=== PATIENT | male | born 1980 | race Caucasian/White ===

== ENCOUNTER → 2021-06-05 11:30 | Outpatient (CLI) | payer OTHER, SELFPAY ==
--- NOTE | ~2021-06-05 | US_ITS ---
EXAMINATION: US renal BI DATE: 06/05/2021 11:43 INDICATION: Persistent proteinuria TECHNIQUE: Multiple ultrasound grayscale images of the kidneys were obtained. COMPARISON: None. FINDINGS: The right kidney measures 11.6 x 8.7 x 6.7 cm. The left kidney measures 13.2 x 6.7 x 6.1 cm. The kidn eys demonstrate normal echogenicity. There is no hydronephrosis in either kidney. No stones identifi ed. The bladder is normal. IMPRESSION: 1. Normal kidneys without hydronephrosis. Reviewed, dictated and finalized at location B.
== END ==
PROVIDERS: PCP Family Medicine; Visit Provider Internal Medicine Nephrology
DX: R80.1 Persistent proteinuria, unspecified (principal)
CPT/HCPCS: 76775

== ENCOUNTER 2024-07-26 11:50 | Outpatient (CLI) | payer OTHER, SELFPAY ==
--- NOTE | ~2024-07-26 | XR_ITS ---
Left foot Technique: AP, oblique, and lateral views were obtained. Clinical History: Swelling Findings: No acute fracture or dislocation is seen. Osseous alignment is anatomic. Joint spaces are p reserved without erosive or degenerative change. Soft tissues are unremarkable. Impression: Unremarkable left foot radiographs. Reviewed, dictated and finalized at location . Impression: Unremarkable left foot radiographs.
--- OUTSIDE RECORDS SUMMARY | 2024-07-26 13:34 | XMS_ITS | Encounter Summary ---
Author Organization [facility] Address [address] [place] [address] Care Team Providers Care Sealant Mixer Name Role Phone Carlos Delcid MD Primary Care Provider [phone] Encounter Details Date Type Department Care Team (Late st Contact Info) Description 12/12/2016 [place] [address] , Generic Conversion, Social History Tobacco Use Types Packs/Day Years Used Date Smoking Tobacco: Never Assessed Sex and Gender Information Value Date Recorded Sex Assigned at Not on file Legal Sex Male 8:13 PM CDT Gender Identity Not on file Sexual Orientation Not on file documented as of this encounter Plan of Treatment Not on file documented as of this encounter Visit Diagnoses Not on filedocumented in this encounter Care Teams Sealant Mixer Relationship Specialty Start Date End Date Carlos Delcid MD [address] [place] [address] PCP - General 09/03/14 documented as of this encounter
--- OUTSIDE RECORDS SUMMARY | 2024-07-26 13:35 | XMS_ITS | Data Portability ---
Author Organization [facility] [employer] [facility], Main Office Address [address] [place] [address] Care Team Providers Care Director Global Intelligence Name Role Phone GEN CALLAWAY Primary Care Provider GEN CALLAWAY Referring Provider [phone] Assessment Encounter Date Assessment Date Assessment LastModified by Organization Details LastModified Time 04/22/2023 04/22/2023 The patient has a mild to moderate left ankle sprain after a ski injury. The pain is localized laterally. It is getting better with time. His x-rays today appear unremarkable. We talked about working on gentle range of motion swelling control with ice compression elevation and anti-inflammator y medication. He can start to wean back into his normal activity slowly. I did offer him a lace-up ankle brace he declined he states he does not have enough discomfort to consider that. I will see him back as needed if symptoms persist or worsen he is instructed call he voiced understanding and agrees with above plan. [email or web address] Not available 04/22/2023 12:07:43 Plan of Treatment Reminders Order Date Submit Date Provider Last Modified By Organization Details Last Modified Time Details Appointments None recorded. Lab TSH + free T4, serum 2022 024 [email or web address] [facility], [address] [facility], [place], [address], 09:09:10 Referral None recorded. Procedures None recorded. Surgeries None recorded. Imaging XR, ankle 2023 024 [email or web address] [facility] [place], [address], [place], [address], 4 12:08:56 CT, abdomen + pelvis, w/ contrast - approved [id number] 01/12/23-02/08 023 [email or web address] Not available 3 12:38:59 Medication Orders atorvastati n 40 mg tablet 2022 023 [facility], [address], [place], [id number], 3 11:11:33 hydrochloro thiazide 25 mg tablet [email or web address] [place] [address] [facility], [address], [place], [id number], 4 11:17:39 lisinopril 40 mg tablet 2022 023 [facility]70350, [address] [place], [place], [id number], 3 11:11:29 levothyroxi ne 50 mcg tablet 2022 023 [facility]59505, [address], [place], [id number], 3 11:08:55 Patient TargetsNo targets recorded. Patient InstructionsNo instructions recorded. Reason for Referral None Reported. Results Created Date Observation Date Name Description Value Unit Range Abnormal Flag Note LastModifiedBy Organization Detail LastModifiedTime 06/28/19 22 06/27/2021 MR, angio gram, brain , w/wo contr ast No observ ation record ed. [id number] [facility] ([facility]) [address] [place], [address], 04/08/2022 12:46:51 01/09/20 22 01/07/2022 XR, foot No observ ation record ed. [id number] [facility] [address] [place], [address], 04/08/2022 12:46:51 01/26/20 23 01/25/2023 CT, abdom en + pelvi s, w/ contr ast No observ ation record ed. [email or web address] [facility] [address] [place], [address], 01/27/2023 15:44:39 04/22/19 24 XR, ankle No observ ation record ed. [email or web address] [facility] [place] [address], [place], [address], 04/22/2023 12:08:54 Result Notes None recorded. Problems Name Problem SNOMED Code Status Onset Date Resolution Date Notes Provider Name and Address Organization Details Recorded Time Injury of left foot 1808025667876 9108 Active 2021 Not Available [facility] 3 12:45:15 Benign essential hypertensi on 9966989 Active 2021 Not Available [facility] 3 12:45:15 Closed fracture proximal phalanx, toe 134011317 Active 2021 Not Available [facility] 3 12:45:15 Mixed hyperlipid emia 150793727 Active 2021 Not Available [facility] 3 12:45:15 Injury of toe 865995256 Active 2021 Not Available [facility] 3 12:45:15 Proteinuri a 85746498 Active 2021 Not Available [facility] 3 12:45:15 Arachnoid cyst 09503140 Active 2021 Not Available [facility] 3 12:45:16 Hypertensi ve disorder 71423114 Active 2021 Not Available [facility] 3 12:45:16 Hyperlipid emia 29196466 Active 2021 Not Available [facility] 3 12:45:16 Impaired glucose tolerance 7337586 Active 2021 Not Available [facility] 3 12:45:16 Hypothyroi dism 87907269 Active 2022 JULY Ambriz [address], [place], [address] , [facility] 3 11:07:55 Right lower quadrant pain 581450582 Active 2022 JULY Ambriz [address], [place], [address] , [facility] [employer] [facility] 3 12:41:25 Pain of left ankle joint 1289099546315 9103 Active 2023 Mira Anderson wanda, [facility] [employer] [facility] 4 11:18:46 Sprain of talofibula r ligament of left ankle 8193136162329 9103 Active 2023 JULY Garcia [address], [place], [address] , [facility] [employer] [facility] 4 12:09:21 Problem Notes None recorded. Procedures Surgical History Date Name Laterality Status Provider Name and Address Organization Details Recorded Time Orthopedic Surgery completed Not Available [facility] 04/08/2022 12:44:46 Imaging Results None recorded. Procedure Notes None recorded. Medical Equipment None Reported. Allergies No known drug allergies Medications Name Sig Start Date Stop Date Status Note LastModified by Organization Details LastModified Time atorvastati n 40 mg tablet TAKE 1 TABLET BY MOUTH EVERY NIGHT AT BEDTIME active Not Available Not Available No t Available atorvastati n 20 mg tablet TAKE 1 TABLET BY MOUTH DAILY 06/17 completed Not Available Not Available Not Available trazodone 50 mg tablet TAKE 1 TABLET BY MOUTH EVERY NIGHT AT BEDTIME NEEDED FOR INSOMNIA 06/18 completed Not Available Not Available Not Available atorvastati n 10 mg tablet 06/17 completed Not Available Not Available Not Available lisinopril 20 mg tablet TAKE 1 TABLET BY MOUTH DAILY 06/18 completed Not Available Not Available Not Available prednisone 20 mg tablet 03/20 completed Not Available Not Available Not Available chlorthalid one 25 mg tablet TAKE 1 TABLET BY MOUTH DAILY active Not Available Not Available No t Available alprazolam 0.5 mg tablet TAKE 1 TABLET BY MOUTH 1 HOUR PRIOR TO APPOINTME NT 06/18 completed Not Available Not Available Not Available levothyroxi ne 50 mcg tablet TAKE 1 TABLET BY MOUTH EVERY DAY IN THE MORNING active Not Available Not Available No t Available hydrochloro thiazide 25 mg tablet TAKE 1 TABLET BY MOUTH EVERY DAY 04/21 completed Not Available Not Available Not Available lisinopril 40 mg tablet TAKE 1 TABLET BY MOUTH EVERY DAY active Not Available Not Available No t Available Vitals Date Recorded Body height Body mass index (BMI) Body weight Provider Name and Address Organization Details Last Updated DateTime 04/22/2023 180.34 cm 33.5 kg/m2 325924.17 g Mira Justin [facility] 04/22/2023 11:17:05 Date Recorded Body mass index (BMI) Body height Oxygen saturation Oxygen saturation in Arterial blood by Pulse oximetry Heart rate Respiratory rate Body temperature Body weight Systolic blood pressure Diastolic blood pressure Provider Name and Address Organization Details Last Updated DateTime 2 18.9 kg/m2 182.88 cm 98 % 98 % 76 /min 16 /min 97.4 [degF] 58691.0 6 g 128 mm[Hg] 80 mm[Hg] Not Available [facility] 3 12:45:06 Date Recorded Body height Oxygen saturation Oxygen saturation in Arterial blood by Pulse oximetry Heart rate Respiratory rate Body temperature Systolic blood pressure Diastolic blood pressure Provider Name and Address Organization Details Last Updated DateTime 2 182.88 cm 98 % 98 % 72 /min 16 /min 97.6 [degF] 120 mm[Hg] 80 mm[Hg] Not Available [facility] 3 12:45:06 Date Recorded Body mass index (BMI) Body height Oxygen saturation Oxygen saturation in Arterial blood by Pulse oximetry Heart rate Body temperature Body weight Systolic blood pressure Diastolic blood pressure Provider Name and Address Organization Details Last Updated DateTime 2 31.2 kg/m2 182.88 cm 99 % 99 % 83 /min 97.2 [degF] 716593. 25 g 120 mm[Hg] 82 mm[Hg] Not Available [facility] 3 12:45:06 Date Recorded Body height Body temperature Body mass index (BMI) Body weight Respiratory rate Oxygen saturation Oxygen saturation in Arterial blood by Pulse oximetry Heart rate Systolic blood pressure Diastolic blood pressure Provider Name and Address Organization Details Last Updated DateTime 3 182.88 cm 97.3 [degF] 33.5 kg/m2 511529. 32 g 16 /min 97 % 97 % 81 /min 148 mm[Hg] 88 mm[Hg] Sonia AguilarANDI [place] [facility] [place] [facility] 3 10:36:19 Social History Question Answer Notes LastModified by Changba Details LastModified Time Tobacco Smoking Status Current Every Day Smoker vape Not Available [facility] 04/08/2022 12:44:45 What Is Your Level Of Caffeine Consumption? Heavy [id number] Information not available 04/08/2022 In The 14 Days Before Symptom Onset, Have You Had Close Contact With A Laboratory-confirm ed COVID-19 While That Case Was Ill? No [id number] Information not available 04/08/2022 In The 14 Days Before Symptom Onset, Have You Had Close Contact With A Person Who Is Under Investigation For COVID-19 While That Person Was Ill? No [id number] Information not available 04/08/2022 What Type Of Diet Are You Following? REGULAR [id number] 026 Information not available 04/08/2022 Have There Been Any Changes To Your Family Or Social Situation? No [id number] 026 Information not available 04/08/2022 Do You Use Insect Repellent Routinely? No [id number] 026 Information not available 04/08/2022 What Is Your Relationship Status? [id number] Information not available 04/08/2022 Do You Use Your Seat Belt Or Car Seat Routinely? Yes [email or web address] Information not available 01/11/2023 Do You Have Smoke And Carbon Monoxide Detectors In Your Home? Yes [id number] 026 Information not available 04/08/2022 Do You Use Sunscreen Routinely? Yes [id number] 026 Information not available 04/08/2022 Have You Recently Traveled Abroad? No [id number] 026 Information not available 04/08/2022 Do You Have Any Dietary Restrictions? No [id number] 026 Information not available 04/08/2022 Sex: Unknown Functional Status Question Answer Note LastModified by Organizat ion Details LastModified Time Do you use any illicit or recreational drugs? No [id number] Information not available 04/08/2022 Do you or have you ever used any other forms of tobacco or nicotine? Yes [id number] Information not available 04/08/2022 What is your level of alcohol consumption? Moderate [id number].[id number] 4331 Information not available 04/08/2022 Are you currently employed? Yes Information not available 01/11/2023 What is your occupation? [employer] [id number].[id number] 2240 Information not available 04/08/2022 Do you or have you ever used e-cigarettes or vape? Current user of electronic cigarettes [id number].[id number] 4760 Information not available 04/08/2022 What is your exercise level? Moderate [id number].[id number] 4656 Information not available 04/08/2022 Mental Status None recorded. Family History Relationship Description Onset Age of this Age Resolved Age Notes LastModified by Organization Details LastModified Time Father Aneurysm [id number] Not available 04/08/2022 12:44:47 Medical History Condition Response HIGH CHOLESTEROL / HYPERLIPIDEMIA Y Past Encounters Encounter ID Performer Location Encounter Start Date Encounter Closed Date Diagnosis/Indication Diagnosis SNOMED-CT Code Diagnosis ICD10 Code Diagnosis Note [id number] Reggie Orta MD [facility] [place] [place] Internal Med [place] [address] [place] [address] 06/18/2021 00:00:00 06/18/2021 09:38:[id number] [facility] [place] Internal [facility] [place] [address] [place] [address] 11/06/2021 00:00:00 11/06/2021 15:25:58 [id number] JULY Ambriz [facility] [place] [place] Internal [facility] [place] [address] [place] [address] 01/07/2022 00:00:00 01/07/2022 17:20:[id number] [facility] [place] Internal Med [place] [address] [place] [address] 01/12/2023 10:26:59 01/12/2023 11:14:46 Adult health examination 204193370 Z00.01 well exam completed Benign ess ential hypertension 9226860 I10 Rx addition of hctz 25mg daily with lisinopril 40mg daily. Arachnoid cyst 61587723 G93.0 stable on scanning and follows with specialist at [place] Impaired g lucose tolerance 2478142 R73.03 6.4% discussed in detail. pt is committed to dietary modificati ons, decrease alcohol intake. he would like to f/u labs in spring. Proteinuria 39599453 R80 .9 noted on urinalysis . seeing specialist . Hypothyroidism 06783812 E03.9 Rx for levothyrox ine 50mcg daily. repeat labs in mid- y Hyperlipidemia 65401408 E78.5 refill atorvastat in at 40mg daily. Right lowe r quadrant pain 253551221 R10.[address] scan a/p w/c. [id number] Brady Renee MD [facility] [place] [address] [facility] [address] [place] [address] 04/22/2023 10:55:32 04/22/2023 12:03:10 Pain of left ankle joint 1378684564 5904050 M25.572 Sprain of talofibular ligament of left ankle 2276955775 8404204 S93.492A Health Concerns Section Related Observation LastModified by Organization Detai ls LastModified Time None Recorded Concern Status LastModified by Organization Details LastModified Time None Recorded Advance Directives Directive None Recorded Payers Insurance Date Sequence Insurance Name Policy Number Policy Gómez Covered Member ID Gómez Member ID Guarantor Name 04/29/2023 1 [facility] Juarez Oropeza [id number] Juarez Oropeza Notes Date Note Type Note Provider Name and Address Organization Details Recorded Time 06/19/19 22 text/htm l HyperlipidemiaReported bypatient.Duration:chronic Control:usually well controlled Current Therapy:currently taking: (atorvastatin) Compliance:compliant; compliant with diet; exercises Complications:no coronary artery disease; no peripheral artery disease; no cardiovascular diseaseHypertensionReported bypatient.Duration:has noted for years Onset/Timing:better Alleviating Factors:medication Self Care:not under emotional stress Associated Symptoms:no shortness of breath; no fatigue; no palpitations; no decline in exercise capacity; no snoring Not Available [facility] [employer] [facility] 06/18/2021 09:38:14 11/07/19 22 text/htm l HyperlipidemiaReported bypatient.Duration:chronic Control:usually well controlled Current Therapy:currently taking: (atorvastatin 40mg) Compliance:compliant; exercises;noncompliant with diet(kind of) Complications:no coronary artery disease; no peripheral artery disease; no cardiovascular disease Risk Factors:hypertensionHypertensio nReported bypatient.Duration:has noted for years Onset/Timing:better Alleviating Factors:medication Self Care:not under emotional stress Associated Symptoms:no shortness of breath; no fatigue; no palpitations; no decline in exercise capacity; no snoring Not Available [facility] [employer] [facility] 11/06/2021 15:25:58 01/08/20 22 text/htm l Generic HPI TemplateReported bypatient.Notes:pt is here for c/o of toe injury, left middle toereports he stubbed it on a wooden stool yesterday eveningappears slightly red and swollen Not Available [facility] [employer] [facility] 01/07/2022 17:20:54 01/13/20 23 text/htm l HyperlipidemiaReported bypatient.Duration:chronic Control:usually well controlled Compliance:compliant;noncomplia nt with diet;does not exercise Complications:no coronary artery disease; no peripheral artery disease; no cardiovascular disease Risk Factors:smokingHypertensionRepo rted bypatient.Duration:has noted for years Onset/Timing:better Alleviating Factors:medication Associated Symptoms:no shortness of breath; no fatigue; no palpitations; no decline in exercise capacity; no snoring Wellness JULY Ambriz [address] [place] [address], [facility] [address], [place], [address], [place] [facility] [employer] [facility] 02/03/2023 12:02:49 04/22/19 24 text/htm l the patient is a 42-year-old male who suffered an injury to his left ankle 1 week ago while skiing. He states he got into some heavy powder caught his ski he fell forward got into an awkward position and felt sudden onset of pain with twisting of the left lower extremity. He was in a ski boot this ski did not release from the boot so he had a significant twisting type injury. He stated most of the pain was localized to the lateral gutter region. Over the course of the past week the pain has started to subside. He comes in today walking in sandals with a normal gait very mild limp. The pain is about a 5 on a scale 1-10 his main complaint is going up and down stairs which seems to be the most difficulty for him. He does not have any pain in the Achilles or a par in the leg. He did not develop any bruising after the injury but did have some mild swelling over the lateral portion of the left ankle. He has pain and tenderness here denies any sensation of instability or loss of motion. With taking some Advil he was able to ski little bit a couple of days later. He did not seek any treatment until he got back from his ski trip. He thought he better get some x-rays to make sure everything looks okay as he is going scan again in about 3 weeks. He comes in today for initial evaluation treatment of his left ankle as described. He has had a previous right ankle fracture x-rays show hardware to be intact with a broken syndesmosis screw from many years ago. Denies any other injury or trauma.Past medical history sheet was reviewed and signed on the intake sheet of today's date drug allergies current medications family social history previous surgical history 10 point review of systems was reviewed and discussed in detail today with the patient. JULY Garcia [address] [place] [address], [place] [address], [place], [address], [place] [facility] 04/22/2023 12:09:45
--- OUTSIDE RECORDS SUMMARY | 2024-07-26 13:35 | XMS_ITS | Clinical Summary ---
Author Organization [facility] Address [address] [place] [address] Care Team Providers Care Tailer In Name Role Phone Carlos Delcid MD Primary Care Provider [phone] Social History Tobacco Use Types Packs/Day Years Used Date Smoking Tobacco: Never Assessed Sex and Gender Information Value Date Recorded Sex Assigned at Not on file Legal Sex Male 8:13 PM CDT Gender Identity Not on file Sexual Orientation Not on file Plan of Treatment Health Maintenance Due Date Last Done Comments Annual Physical 10/20/1982 Hepatitis C 10/20/1997 DTaP, Tdap and Td Vaccines ( 1 - Tdap) 10/20/1998 Hepatitis B Vaccines (1 of 3 - 19+ 3-dose series) 10/20/1998 COVID-19 Vaccine ( - 2023-2 5 season) 2023 HPV Vaccines Aged Out No longer eligi ble based on patient's age to complete this topic Meningococcal B Vaccine Aged Out No l onger eligible based on patient's age to complete this topic Meningococcal Vaccine Aged Out No gruu freda eligible based on patient's age to complete this topic Pneumococcal Vaccine: Pediat rics (0 to 5 Years) and At-Risk Patients (6 to 49 Years) Aged Out No longer eligible b ased on patient's age to complete this topic RSV Immunizations Under 20 Months Aged Out No longer eligible based on patient's age to complete this topic Care Teams Tailer In Relationship Specialty Start Date End Date Carlos Delcid MD [address] [place] [id number] PCP - General 09/03/14
--- OUTSIDE RECORDS SUMMARY | 2024-07-26 13:35 | XMS_ITS | Data Portability ---
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 Plan of Treatment Reminders Order Date Submit Date Provider Last Modified By Organization Details Last Modified Time Details Appointments ANY 15 2024 09:15A M JULY Ambriz Not available Not available Not available Lab CMP, serum or plasma 2023 024 MUKESH Dang, 2022 Quinn [address], [address], [place], [address], 10/31/2023 20:35:50 CBC w/ auto diff 2023 024 MUKESH Dang, 2022 Quinn [address], [address], [place], [address], 10/31/2023 20:35:51 lipid panel, serum 2023 024 MUKESH Dang, 2022 Quinn [address], [address], [place], [address], 10/31/2023 20:35:49 PSA, total, serum or plasma 2023 024 MUKESH Dang, 2022 Quinn [address], [address], [place], [address], 10/31/2023 20:35:52 testoster one, total, serum 2023 024 MUKESH Dang, 2022 Quinn Barrios, [address], [place], [address], 10/31/2023 20:35:52 HbA1c (hemoglob in A1c), blood [address] [place] [facility] [place], 2022 Quinn Barrios, [address], [place], [address], 10/31/2023 20:35:50 TSH + free T4, serum [address] [place] [facility], 2022 Quinn Barrios, [address], [place], [address], 10/31/2023 20:35:49 Referral None recorded. Procedures None recorded. Surgeries None recorded. Imaging None recorded. Medication Orders testoster one cypionate 200 mg/mL intramusc ular oil 2023 [email or web address] [facility][id number], [address], [place], [id number], 12/13/2023 14:53:25 testoster one cypionate 200 mg/mL intramusc ular oil 2023 024 Not available 11/12/2023 10:38:25 carvedilo l phosphate ER 20 mg capsule,e xt.releas e24hr multiphas e [address] [facility][id number], [address], [place], [id number], 09/23/2023 21:57:22 Patient TargetsNo targets recorded. Patient Instructions Encounter Date Encounter Id Patient Instructions Last Modified By Organization Details Last Modified Time 09/22/2023 [id number] A healthy lifestyle: care instructions Not available 10/09/2023 20:30:38 Reason for Referral None Reported. Results Created Date Observation Date Name Description Value Unit Range Abnormal Flag Note LastModifiedBy Organization Detail LastModifiedTime 10/22/19 24 10/23/2023 TSH+F REE T4 TSH 1.570 uIU/m L 0.450- 4.500 Not Available [facility] [address] [place], [address], 10/31/2023 20:35:49 10/22/19 24 10/23/2023 TSH+F REE T4 T4,free(dire ct) 1.40 NG/dL 0.82-1 .77 Not Available [facility] [address] [place], [address], 10/31/2023 20:35:49 10/22/19 24 10/23/2023 LIPID PANEL cholesterol, total 162 mg/dL 100-19 9 Not Available [facility] [address] [place], [address], 10/31/2023 20:35:49 10/22/19 24 10/23/2023 LIPID PANEL triglyceride s 151 mg/dL 0-149 above high normal Not Available [facility] [address] [place], [address], 10/31/2023 20:35:49 10/22/19 24 10/23/2023 LIPID PANEL HDL cholesterol 37 mg/dL >39 below low normal Not Available [facility] [address] [place], [address], 10/31/2023 20:35:49 10/22/19 24 10/23/2023 LIPID PANEL VLDL cholesterol jazlyn 27 mg/dL 5-40 Not Available [facility] [address] [place], [address], 10/31/2023 20:35:49 10/22/19 24 10/23/2023 LIPID PANEL LDL chol calc ([facility]) 98 mg/dL 0-99 Not Available [facility] [address] [place], [address], 10/31/2023 20:35:49 10/22/19 24 10/23/2023 COMP. METAB OLIC PANEL (14) glucose 78 mg/dL 70-99 Not Available [facility] [address] [place], [address], 10/31/2023 20:35:50 10/22/19 24 10/23/2023 COMP. METAB OLIC PANEL (14) BUN 11 mg/dL 6-24 Not Available [facility] [address] [place], [address], 10/31/2023 20:35:50 10/22/19 24 10/23/2023 COMP. METAB OLIC PANEL (14) creatinine 0.79 mg/dL 0.76-1 .27 Not Available [facility] [address] [place], [address], 10/31/2023 20:35:50 10/22/19 24 10/23/2023 COMP. METAB OLIC PANEL (14) eGFR 112 mL/mi n/1.7 3 >59 Not Available [facility] [address] [place], [address], 10/31/2023 20:35:50 10/22/19 24 10/23/2023 COMP. METAB OLIC PANEL (14) BUN/creatini ne ratio 14 9-20 Not Available [facility] [address] [place], [address], 10/31/2023 20:35:50 10/22/19 24 10/23/2023 COMP. METAB OLIC PANEL (14) sodium 138 mmol/ L 134-14 4 Not Available [facility] [address] [place], [address], 10/31/2023 20:35:50 10/22/19 24 10/23/2023 COMP. METAB OLIC PANEL (14) potassium 4.2 mmol/ L 3.5-5. 2 Not Available [facility] [address] [place], [address], 10/31/2023 20:35:50 10/22/19 24 10/23/2023 COMP. METAB OLIC PANEL (14) chloride 100 mmol/ L 96-106 Not Available [facility] [address] [place], [address], 10/31/2023 20:35:50 10/22/19 24 10/23/2023 COMP. METAB OLIC PANEL (14) carbon dioxide, total 22 mmol/ L 20-29 Not Available [facility] [address] [place], [address], 10/31/2023 20:35:50 10/22/19 24 10/23/2023 COMP. METAB OLIC PANEL (14) calcium 9.9 mg/dL 8.7-10 .2 Not Available [facility] [address] [place], [address], 10/31/2023 20:35:50 10/22/19 24 10/23/2023 COMP. METAB OLIC PANEL (14) protein, total 7.0 g/dL 6.0-8. 5 Not Available [facility] [address] [place], [address], 10/31/2023 20:35:50 10/22/19 24 10/23/2023 COMP. METAB OLIC PANEL (14) albumin 4.7 g/dL 4.1-5. 1 Not Available [facility] [address] [place], [address], 10/31/2023 20:35:50 10/22/19 24 10/23/2023 COMP. METAB OLIC PANEL (14) globulin, total 2.3 g/dL 1.5-4. 5 Not Available [facility] [address] [place], [address], 10/31/2023 20:35:50 10/22/19 24 10/23/2023 COMP. METAB OLIC PANEL (14) bilirubin, total 0.6 mg/dL 0.0-1. 2 Not Available [facility] [address] [place], [address], 10/31/2023 20:35:50 10/22/19 24 10/23/2023 COMP. METAB OLIC PANEL (14) alkaline phosphatase 60 IU/L 44-121 Not Available [facility] [address] [place], [address], 10/31/2023 20:35:50 10/22/19 24 10/23/2023 COMP. METAB OLIC PANEL (14) AST (SGOT) 54 IU/L 0-40 above high normal Not Available [facility] [address] [place], [address], 10/31/2023 20:35:50 10/22/19 24 10/23/2023 COMP. METAB OLIC PANEL (14) ALT (SGPT) 71 IU/L 0-44 above high normal Not Available [facility] [address] [place], [address], 10/31/2023 20:35:50 10/22/19 24 10/23/2023 HEMOG LOBIN A1C hemoglobin A1C 6.0 % 4.8-5. 6 above high normal Predi abete s: 5.7 - 6.4 Diabe dejuan: >6.4 Glyce hi contr ol for adult s with diabe dejuan: <7.0 Not Available [facility] [address] [place], [address], 10/31/2023 20:35:50 10/22/19 24 10/23/2023 CBC WITH DIFFE RENTI AL/PL ATELE T WBC 7.0 x10e3 /uL 3.4-10 .8 Not Available [facility] [address] [place], [address], 10/31/2023 20:35:51 10/22/19 24 10/23/2023 CBC WITH DIFFE RENTI AL/PL ATELE T RBC 4.55 x10e6 /uL 4.14-5 .80 Not Available [facility] [address] [place], [address], 10/31/2023 20:35:51 10/22/19 24 10/23/2023 CBC WITH DIFFE RENTI AL/PL ATELE T hemoglobin 13.7 g/dL 13.0-1 7.7 Not Available [facility] [address] [place], [address], 10/31/2023 20:35:51 10/22/1910/23/2023 CBC WITH DIFFE RENTI AL/PL ATELE T hematocrit 41.7 % 37.5-5 1.0 Not Available [facility] [address] [place], [address], 10/31/2023 20:35:51 10/22/19 24 10/23/2023 CBC WITH DIFFE RENTI AL/PL ATELE T MCV 92 fL 79-97 Not Available [facility] [address] [place], [address], 10/31/2023 20:35:51 10/22/19 24 10/23/2023 CBC WITH DIFFE RENTI AL/PL ATELE T MCH 30.1 pg 26.6-3 3.0 Not Available [facility] [address] [place], [address], 10/31/2023 20:35:51 10/22/19 24 10/23/2023 CBC WITH DIFFE RENTI AL/PL ATELE T MCHC 32.9 g/dL 31.5-3 5.7 Not Available [facility] [address] [place], [address], 10/31/2023 20:35:51 10/22/19 24 10/23/2023 CBC WITH DIFFE RENTI AL/PL ATELE T RDW 12.3 % 11.6-1 5.4 Not Available [facility] [address] [place], [address], 10/31/2023 20:35:51 10/22/19 24 10/23/2023 CBC WITH DIFFE RENTI AL/PL ATELE T platelets 333 x10e3 /uL 150-45 0 Not Available [facility] [address] [place], [address], 10/31/2023 20:35:51 10/22/19 24 10/23/2023 CBC WITH DIFFE RENTI AL/PL ATELE T neutrophils 55 % notest ab. Not Available [facility] [address] [place], [address], 10/31/2023 20:35:51 10/22/19 24 10/23/2023 CBC WITH DIFFE RENTI AL/PL ATELE T lymphs 32 % notest ab. Not Available [facility] [address] [place], [address], 10/31/2023 20:35:51 10/22/19 24 10/23/2023 CBC WITH DIFFE RENTI AL/PL ATELE T monocytes 11 % notest ab. Not Available [facility] [address] [place], [address], 10/31/2023 20:35:51 10/22/19 24 10/23/2023 CBC WITH DIFFE RENTI AL/PL ATELE T eos 1 % notest ab. Not Available [facility] [address] [place], [address], 10/31/2023 20:35:51 10/22/19 24 10/23/2023 CBC WITH DIFFE RENTI AL/PL ATELE T basos 1 % notest ab. Not Available [facility] [address] [place], [address], 10/31/2023 20:35:51 10/22/19 24 10/23/2023 CBC WITH DIFFE RENTI AL/PL ATELE T neutrophils (absolute) 3.8 x10e3 /uL 1.4-7. 0 Not Available [facility] [address] [place], [address], 10/31/2023 20:35:51 10/22/19 24 10/23/2023 CBC WITH DIFFE RENTI AL/PL ATELE T lymphs (absolute) 2.3 x10e3 /uL 0.7-3. 1 Not Available [facility] [address] [place], [address], 10/31/2023 20:35:51 10/22/19 24 10/23/2023 CBC WITH DIFFE RENTI AL/PL ATELE T monocytes(ab solute) 0.8 x10e3 /uL 0.1-0. 9 Not Available [facility] [address] [place], [address], 10/31/2023 20:35:51 10/22/19 24 10/23/2023 CBC WITH DIFFE RENTI AL/PL ATELE T eos (absolute) 0.1 x10e3 /uL 0.0-0. 4 Not Available [facility] [address] [place], [address], 10/31/2023 20:35:51 10/22/19 24 10/23/2023 CBC WITH DIFFE RENTI AL/PL ATELE T baso (absolute) 0.1 x10e3 /uL 0.0-0. 2 Not Available [facility] [address] [place], [address], 10/31/2023 20:35:51 10/22/19 24 10/23/2023 CBC WITH DIFFE RENTI AL/PL ATELE T immature granulocytes 0 % notest ab. Not Available [facility] [address] [place], [address], 10/31/2023 20:35:51 10/22/19 24 10/23/2023 CBC WITH DIFFE RENTI AL/PL ATELE T immature grans (abs) 0.0 x10e3 /uL 0.0-0. 1 Not Available [facility] [address] [place], [address], 10/31/2023 20:35:51 10/22/19 24 10/23/2023 PROST ATE-S PECIF IC AG prostate specific Ag 1.1 NG/mL 0.0-4. 0 [facility]ayne ECLIA metho dolog y. Accor ding to the Ameri can Urolo gical Assoc iatio n, Serum PSA shoul d decre ase and remai n at undet ectab le level s after radic al prost atect diogenes. The AUA defin es bioch emica l recur rence as an initi al PSA value 0.2 ng/mL or great er follo wed by a subse quent confi rmato ry PSA value 0.2 ng/mL or great er. Value s obtai na with diffe rent assay metho ds or kits canno t be used inter ybarra eably . Resul ts canno t be inter prete d as absol vincent evide nce of the prese nce or absen ce of diane cristina se. Not Available [facility] [address] [place], [address], 10/31/2023 20:35:51 10/22/19 24 10/31/2023 TESTO STERO NE, TOTAL , LC/MS testosterone , total, lc/MS 261 NG/dL below low normal This test was devel oped and its perfo rmanc e berna cteri stics deter mined by [facility]. It has not been clear ed or appro adolfo by the Food and Drug Admin istra tion. Refer ence Range : Adult Males >18 years 264 - 916 This [facility] LC/MS -MS metho d is curre ntly certi fied by the [facility] Hormo ne Stand ardiz ation Progr am (HoST ). Adult male refer ence inter eliot is based on a popul ation of healt hy nonob shayy males (BMI <3 0) betwe en 19 and 39 years old. Dea campos, et.al . JCEM 2017, 102;1 161-1 173 PMID: 85316 103. Not Available [facility] [address] [facility], [place], [address], 10/31/2023 20:35:52 11/03/19 24 11/04/2023 TESTO STERO NE testosterone 218 NG/dL 264-91 6 below low normal Adult male refer ence inter eliot is based on a popul ation of healt hy nonob shayy males (BMI <30) betwe en 19 and 39 years old. shalom Knight.ajay . JCEM 2017, 102;1 161-1 173. PMID: 34930 103. Not Available [facility] ([facility]) [address] [facility], [place], [address], 11/04/2023 03:37:02 Result Notes None recorded. Problems Name Problem SNOMED Code Status Onset Date Resolution Date Notes Provider Name and Address Organization Details Recorded Time Body mass index 30+ - obesity 717733028 Active 2023 JULY Ambriz Attn: Stephanie best,[address] [place], [address], [place] - [facility] 4 20:30:29 Obesity 670173895 Active 2023 JULY Ambriz Attn: Stephanie best,[address] [facility], [place], [address], [place] - [facility] 4 20:30:37 Hyperlipidemia 94491384 Active 2023 JULY Ambriz Attn: Stephanie best,[address] [facility], [place], [address], [place] [facility] 4 20:31:03 Hypothyroidism 11484763 Active 2023 JULY Ambriz Attn: Stephanie best,[address] [facility], [place], [address], [place] [facility] 4 20:31:05 Benign essential hypertension 0738975 Active 2023 JULY Ambriz Attn: Stephanie best,[address] [facility], [place], [address], [place] [facility] 4 20:31:41 Male hypogonadism 58566329 Active 2023 JULY Ambriz Attn: Accountamarilys g,[address] [facility], [place], [address], [place] [facility] 4 16:39:49 Erectile dysfunction 629876677 Active 2023 JULY Ambriz Attn: Stephanie best,[address] [facility], [place], [address], [place] [facility] 4 13:26:59 Problem Notes None recorded. Medical Equipment None Reported. Allergies No known drug allergies Medications Name Sig Start Date Stop Date Status Note LastModified by Organization Details LastModified Time Prescription - Prior Authorizatio n Request active Not Available Not Available No t Available atorvastatin 40 mg tablet TAKE 1 TABLET BY MOUTH EVERY NIGHT AT BEDTIME 2023 active Not Available Not Available Not Avai lable carvedilol 12.5 mg tablet TAKE 1 TABLET BY MOUTH TWICE DAILY FOR HIGH BLOOD PRESSURE active Not Available Not Available No t Available chlorthalido ne 25 mg tablet TAKE 1 TABLET BY MOUTH DAILY active Not Available Not Available No t Available levothyroxin e 50 mcg tablet TAKE 1 TABLET BY MOUTH EVERY DAY IN THE MORNING 2024 active Not Available Not Available Not Avai lable indomethacin 50 mg capsule Take 1 capsule 3 times a day by oral route as needed, for left foot pain. 2024 active Not Available Not Available Not Avai lable hydrochlorot hiazide 25 mg tablet TAKE 1 TABLET BY MOUTH EVERY DAY 2023 active HOLD if able to get coreg Not Available Not Available Not Available testosterone cypionate 200 mg/mL intramuscula r oil Inject 1 mL every 4 weeks by intramuscu lar route. 2023 active Not Available Not Available Not Avai lable lisinopril 40 mg tablet One tab p.o. daily active Not Available Not Available N ot Available tadalafil 20 mg tablet Take 1 tablet every day by oral route as needed, for prior to sexual activity. max 20mg in 24 hours. active Not Available Not Available No t Available BD Integra Syringe 3 mL 25 gauge x 1 USE DIRECTED TO INJECT TESTOSTERO NE ONCE A MONTH active Not Available Not Available No t Available carvedilol phosphate ER 20 mg capsule,ext. [id number] multiphase TAKE 1 CAPSULE BY MOUTH EVERY DAY active Not Available Not Available No t Available testosterone 20.25 mg/1.25 gram per pump act.(1.62 %) transdermal gel APPLY 1 PUMP TO EACH SHOULDER DAILY DIRECTED active Not Available Not Available No t Available Vitals Date Recorded Systolic blood pressure Diastolic blood pressure Provider Name and Address Organization Details Last Updated DateTime 09/22/2023 122 mm[Hg] 80 mm[Hg] JULY Ambriz Attn: Accounting[address] [place], [address], [facility] 09/22/2023 10:03:09 Date Recorded Body height Body mass index (BMI) Body weight Oxygen saturation Oxygen saturation in Arterial blood by Pulse oximetry Heart rate Respiratory rate Systolic blood pressure Diastolic blood pressure Provider Name and Address Organization Details Last Updated DateTime 180.34 cm 33.5 kg/m2 972108. 92 g 97 % 97 % 70 /min 20 /min 136 mm[Hg] 88 mm[Hg] Sulaiman Dodd MA [facility] 09:33:51 Date Recorded Body height Provider Name an d Address Organization Details Last Updated DateTime 11/12/2023 180.34 cm Tori Lofton MA [facility] 11/12/2023 10:21:39 Social History Question Answer Notes LastModified by Organizat ion Details LastModified Time Tobacco Smoking Status Former Smoker younger Sulaiman Dodd MA null, [facility] 09/22/2023 09:30:49 Do You Have An Advance Directive? Yes Information not available 09/22/2023 Are You Blind Or Do You Have Difficulty Seeing? No Information not available 09/22/2023 What Is Your Level Of Caffeine Consumption? Occasional Coffee Information not available 09/22/2023 In The 14 Days Before Symptom Onset, Have You Had Close Contact With A Laboratory-confir med COVID-19 While That Case Was Ill? No Information not available 09/22/2023 In The 14 Days Before Symptom Onset, Have You Had Close Contact With A Person Who Is Under Investigation For COVID-19 While That Person Was Ill? No Information not available 09/22/2023 Have You Been To An Area Known To Be High Risk For COVID-19? No Information not available 09/22/2023 Are You Deaf Or Do You Have Serious Difficulty Hearing? No Information not available 09/22/2023 What Type Of Diet Are You Following? REGULAR Information not available 09/22/2023 Are There Any Guns Present In Your Home? No Information not available 09/22/2023 What Was The Date Of Your Most Recent Tobacco Screening? 09/22/2023 Information not available 09/22/2023 Do You Use Your Seat Belt Or Car Seat Routinely? Yes Information not available 09/22/2023 Do You Have Smoke And Carbon Monoxide Detectors In Your Home? Yes Information not available 09/22/2023 Do You Use Sunscreen Routinely? Yes Information not available 09/22/2023 Has Tobacco Cessation Counseling Been Provided? No Information not available 09/22/2023 How Many Years Have You Used E-cigarettes Or Vape? 3 3-4 Information not available 09/22/2023 Sex: Male Functional Status Question Answer Note LastModified by Organizat ion Details LastModified Time Do you use any illicit or recreational drugs? No Information not available 09/22/2023 Do you or have you ever used any other forms of tobacco or nicotine? Yes Information not available 09/22/2023 What is your level of alcohol consumption? Occasional Information not available 09/22/2023 Do you or have you ever used smokeless tobacco? Never used smokeless tobacco Information not available 09/22/2023 Are you able to care for yourself? Yes Information not available 09/22/2023 Do you or have you ever used e-cigarettes or vape? Current user of electronic cigarettes Information not available 09/22/2023 What is your exercise level? Occasional Information not available 09/22/2023 Mental Status None recorded. Family History Nothing Reported. Medical History Condition Response High Blood Pressure Y High Cholesterol Thyroid Problems Y Immunizations Vaccine Type Date Status Note Provider Nam e and Address Organization Details Recorded Time COVID-19, mRNA, LNP-S, PF, 30 mcg/0.3 mL dose 05/29/2020 completed ANEESH Garcia, [place] [facility] 12/10/2023 17:03:23 COVID-19, mRNA, LNP-S, PF, 30 mcg/0.3 mL dose 10/08/2020 completed ANEESH Garcia, [place] - [facility] 12/10/2023 17:03:23 Tdap 07/06/2023 completed ANEESH [place] [facility] 12/10/2023 17:03:23 Tdap 09/03/2014 completed AN[place]ESH [place] [facility] 12/10/2023 17:03:23 Influenza, split virus, trivalent, PF 01/12/2017 completed [place]ESH [place] [facility] 12/10/2023 17:03:23 Past Encounters Encounter ID Performer Location Encounter Start Date Encounter Closed Date Diagnosis/Indication Diagnosis SNOMED-CT Code Diagnosis ICD10 Code Diagnosis Note [id number] Reggie Orta MD [facility] [employer] [address] [place] [employer] [address] 09/22/2023 09:13:56 09/22/2023 13:36:45 Benign essential hypertension 3229144 I10 Blood pressure is stable but patient is having a little bit of erectile side effects with hydrochlor othiazide medication . We will attempt to stop hydrochlor othiazide and fill the space with Coreg ER 20 mg daily while continuing lisinopril 40 mg daily for blood pressure management . Hypothyroidism 18574240 E03.9 Continue levothyrox ine 50 mcg daily and check updated thyroid function panel Hyperlipidemia 46284277 E78.5 Fasting lipid panel is due and continue atorvastat in 40 mg daily Long-term drug therapy 967807305 Z79.899 Routine CBC and CMP due Diabetes m ellitus screening 842792688 Z13.1 Screening for diabetes risk assessment due Screening for malignant neoplasm of prostate 063691634 Z12.5 Annual PSA screening due Endocrine/ metabolic screening 063723517 Z13.228 Screening testostero ne requested Body mass index 30+ - obesity 761257172 Z68.33 BMI is 33.5 Obesity 305847283 E66.8 discussed healthy diet, exercise, controllin g carbohydra dejuan and added sugars in the diet [id number] Reggie Orta MD [facility] [employer] [address] [place] [address] 11/12/2023 10:01:53 11/12/2023 11:03:12 Male hypogonadism 45272288 E29.1 [id number] Reggie Orta MD [facility] [employer] [address] [place] [employer] [address] 12/13/2023 14:03:55 12/13/2023 14:42:52 Male hypogonadism 26412693 E29.1 Health Concerns Section Related Observation LastModified by Organization Detai ls LastModified Time None Recorded Concern Status LastModified by Organization Details LastModified Time None Recorded Advance Directives Directive Y: Payers Insurance Date Sequence Insurance Name Policy Number Policy Gómez Covered Member ID Gómez Member ID Guarantor Name 12/16/2023 1 [facility] [id number] Juarez Oropeza [id number] Juarez Oropeza Notes Date Note Type Note Provider Name and Address Organization Details Recorded Time 4 text/htm l HyperlipidemiaReported bypatient.Notes:Patient is taking atorvastatin 40 mg daily and is due for fasting labsHypertensionReported bypatient.Notes:For hypertension patient is taking hydrochlorothiazide 25 mg daily and lisinopril 40 mg daily.ThyroidReported bypatient.Notes:Thyroid labs are due and patient is taking levothyroxine 50 mcg daily JULY Ambriz Attn: Accounting,[address] [place], [address], [facility] - [facility] 10/09/2023 20:32:01
--- OUTSIDE RECORDS SUMMARY | 2024-07-26 13:36 | XMS_ITS | Clinical Summary ---
Author Organization [facility] Address [address] [place] [address] Care Team Providers Care Candy Vendor Name Role Phone Carlos Delcid MD Primary Care Provider [phone] Source Comments [facility],non-owned Affiliates and Associated Physician Practices is amultiple site organization consisting of ambulatory clinics and hospital sitesin [place], [place], [place] and [place]. This disclosure is being madepursuant to the Care Everywhere program and may not contain all information available regarding this patient. Last updated 17.[facility] Allergies No known active allergies Medications * Be aware that medications may not be up to date on this document. Alwaysverify current medications with the patient. predniSONE (DELTASONE) 20 MG tablet 1 tab PO TID xs 3 days then 1 tab PO BID xs 3 days then 1 tab PO QD xs 2 days then 1/2 PO QD 2 days. 18 tablet 09/17/2018 Active Active Problems No known active problems Family History Relation Name Status Comments Father Mother Alive Social History Tobacco Use Types Packs/Day Years Used Date Smoking Tobacco: Some Days Smokeless Tobacco: Current Sex and Gender Information Value Date Recorded Sex Assigned at Not on file Legal Sex Male 10:26 AM CDT Gender Identity Not on file Sexual Orientation Not on file Last Filed Vital Signs Vital Sign Reading Time Taken Comments Blood Pressure 128/72 09/17/2018 12:41 PM CDT Pulse 85 09/17/2018 12:41 PM CDT Temperature 37.3 C (99.1 F) 09/17/2018 12:41 PM CDT Respiratory Rate 18 09/17/2018 12:41 PM CDT Oxygen Saturation - - Inhaled Oxygen Concentration - - Weight 100.2 kg (221 lb) 09/17/2018 12:41 PM CDT Height 182.9 cm (6') 09/17/2018 12:41 PM CDT Body Mass Index 29.97 09/17/2018 12:41 PM CDT Plan of Treatment Health Maintenance Due Date Last Done Comments LIPID TESTING 1979 HIV SCREENING 10/20/1994 HEPATITIS C SCREENING 10/16/1997 DTAP/TDAP/TD VACCINES (1 - Tdap) 10/20/1998 HEPATITIS B VACCINE (1 of 3 - 19+ 3-dose series) 10/20/1998 COVID-19 VACCINE (1 - 2023-2 5 season) 2023 DEPRESSION SCREENING 02/09/2024 INFLUENZA VACCINE (Season Ended) 2024 ZOSTER VACCINE (1 of 2) 10/20/2029 HIB VACCINE Aged Out No longer eligi ble based on patient's age to complete this topic HPV VACCINE Aged Out No longer eligi ble based on patient's age to complete this topic MENINGOCOCCAL (Group B) VACC INE SHARED DECISION-MAKING Aged Out No longer eligibl e based on patient's age to complete this topic MENINGOCOCCAL GROUPS A/C/Y/W VACCINE Aged Out No longer eligible b ased on patient's age to complete this topic PNEUMOCOCCAL VACCINE Aged Out No long er eligible based on patient's age to complete this topic Insurance [facility] Care Teams Candy Vendor Relationship Specialty Start Date End Date Carlos Delcid MD [address] [place] [address] PCP - General Family Medicine 09/17/18
--- OUTSIDE RECORDS SUMMARY | 2024-07-26 13:36 | XMS_ITS | Clinical Summary ---
Author Organization [facility] Address [address] [place] [id number] Phone Care Team Providers Care Switch Foreman Name Role Phone Georgia Black Primary Care Provider [phone] Allergies No known active allergies Medications atorvastatin (LIPITOR) 40 MG tablet Take 40 mg by mouth every night 04/21/2021 Active lisinopril (PRINIVIL) 40 MG tablet Take 40 mg by mouth 1 (one) time each day 09/03/2021 Active hydroCHLOROthiaz anushka (HYDRODIURIL) 25 MG tablet Take 1 tablet (25 mg total) by mouth 1 (one) time each day 30 tablet 11 11/12/2021 Active Active Problems Problem Noted Date Diagnosed Date Benign essential hypertension 06/18/2021 Persistent proteinuria 05/24/2020 Abnormal result of kidney function study 018 Other and unspecified hyperlipidemia 06/17/2017 Overview (04/23/2018): Converted unresolved ICD9, potential mismatch. Immunizations Immunization Administration Dates Next Due Influenza (IM) Preservative Free 01/12/2017 Tdap 09/03/2014 Family History Medical History Relation Comments Cerebrovascular accident Father Kidney disease Neg Hx Relation Status Comments Father Social History Tobacco Use Types Packs/Day Years Used Date Smoking Tobacco: Light Smoker Cigarettes Last attempted t o quit: 02/08/2017 Smokeless Tobacco: Never Comments:he is smoking a lit tle Alcohol Use Standard Drinks/Week Comments Yes 0 (1 standard drink = 0.6 oz pure alcohol) Alcoholic Drinks/day: 4-12 per week Sex and Gender Information Value Date Recorded Sex Assigned at Not on file Legal Sex Male 7:22 AM MST Gender Identity Not on file Sexual Orientation Not on file Last Filed Vital Signs Vital Sign Reading Time Taken Comments Blood Pressure 126/74 11/12/2021 9:39 AM CDT Pulse 72 11/12/2021 9:39 AM CDT Temperature 36.6 C (97.8 F) 11/12/2021 9:39 AM CDT Respiratory Rate - - Oxygen Saturation - - Inhaled Oxygen Concentration - - Weight 108 kg (239 lb) 11/12/2021 9:39 AM CDT Height 182.9 cm (6') 11/12/2021 9:39 AM CDT Body Mass Index 32.41 11/12/2021 9:39 AM CDT Plan of Treatment Health Maintenance Due Date Last Done Comments Influenza Vaccine (Season Ended) 2024 01/13/20 17 Insurance [facility] [address] Care Teams Switch Foreman Relationship Specialty Start Date End Date Georgia Black PA [address] [place] [id number] PCP - General Family Medicine 11/12/21
--- OUTSIDE RECORDS SUMMARY | 2024-07-26 13:36 | XMS_ITS | Clinical Summary ---
Author Organization [facility] Address [address] [place] [address] Care Team Providers Care Master Glazier Name Role Phone Georgia Black Primary Care Pr ovider Allergies No known active allergies Medications atorvastatin (LIPITOR) 40 mg tablet Take 1 tablet (40 mg total) by mouth nightly 09/04/19 22 Active lisinopriL (PRINIVIL,ZES TRIL) 40 mg tablet Take 1 tablet (40 mg total) by mouth daily Act anabel hydroCHLOROth iazide (HYDRODIURIL) 25 mg tablet hydrochlorothiazide 25 mg tablet Active levothyroxine (SYNTHROID) 50 mcg tablet Take 1 tablet (50 mcg total) by mouth every morning Active Active Problems Problem Noted Date Diagnosed Date Hypothyroidism 01/11/2023 Right lower quadrant pain 01/11/2023 Injury of left foot 01/07/2022 Injury of toe 01/07/2022 Impaired glucose tolerance 11/06/2021 Arachnoid cyst 07/16/2021 Benign essential hypertension 06/18/2021 Hypertensive disorder 06/18/2021 Persistent proteinuria 05/24/2020 Other and unspecified hyperlipidemia 06/17/2017 Overview (09/25/2021): Converted unresolved ICD9, potential mismatch. Renal function test abnormal 06/17/2017 Skin benign neoplasm 08/22/2014 Benign neoplasm of skin of trunk 11/22/2012 Skin tag 11/22/2012 Inflamed seborrheic keratosis 11/22/2012 Infectious warts 11/22/2012 Immunizations Immunization Administration Dates Next Due Influenza, Trivalent, Preservative Free, Intramu scular 01/12/2017 Tdap 09/03/2014 Surgical History Surgery Date Site/Laterality Comments ANKLE SURGERY Right Medical History Medical History Date Comments Brain cyst Hypertension Family History Relation Name Status Comments Father Social History Tobacco Use Types Packs/Day Years Used Date Smoking Tobacco: Former Cigarettes Vaping Smokeless Tobacco: Never Tobacco Cessation:Counseling Given: Not Answered AUDIT-C Answer Date Recorded Q1: How often do you have a drink containing alcohol? 4 or more times a week 03/11/2023 Q2: How many drinks containi ng alcohol do you have on a typical day when you are drinking? 3 or 4 Q3: How often do you have si x or more drinks on one occasion? 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 Not on file Not on file Obstetrics History Last Filed Vital Signs Vital Sign Reading Time Taken Comments Blood Pressure 150/91 02/03/2022 11:39 AM FOAMITE MIXER Pulse 81 02/03/2022 11:39 AM FOAMITE MIXER Temperature - - Respiratory Rate - - Oxygen Saturation - - Inhaled Oxygen Concentration - - Weight 112.7 kg (248 lb 6.4 oz) 024 10:20 AM FOAMITE MIXER Height 180.3 cm (5' 11) 03/11/2023 10: 20 AM FOAMITE MIXER Body Mass Index 34.64 03/11/2023 10:20 AM FOAMITE MIXER Plan of Treatment Health Maintenance Due Date Last Done Comments Depression Screening 1980 Hepatitis C Screening 1980 Varicella Vaccines (1 of 2 - 13+ 2-dose series) 10/20/1992 Hepatitis B Screening 10/20/1997 Regular Well Visit/Exam 18-64 10/20/1997 Covid-19 Vaccine (3 - 2023-2 5 season) 2023 10/08/2020, 05/29/2020 DTaP/Tdap/Td Vaccine (2 - Td or Tdap) 09/03/2024 09/03/2014 Influenza Vaccine (Season Ended) 2024 01/12/2017 HPV Vaccines Aged Out No longer eligi ble based on patient's age to complete this topic Pneumococcal vaccine <65 Aged Out No longer eligible based on patient's age to complete this topic Insurance [facility] Care Teams Master Glazier Relationship Specialty Start Date End Date Georgia Black PA PCP - General Physician Motorized Squad Commanding Officer 06/27/21
--- OUTSIDE RECORDS SUMMARY | 2024-07-26 13:36 | XMS_ITS | Referral Summary ---
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 Not on file Last Filed Vital Signs Vital Sign Reading Time Taken Comments Blood Pressure 150/91 02/03/2022 11:39 AM INVESTIGATOR FRAUD Pulse 81 02/03/2022 11:39 AM INVESTIGATOR FRAUD Temperature - - Respiratory Rate - - Oxygen Saturation - - Inhaled Oxygen Concentration - - Weight 112.7 kg (248 lb 6.4 oz) 024 10:20 AM INVESTIGATOR FRAUD Height 180.3 cm (5' 11) 03/11/2023 10: 20 AM INVESTIGATOR FRAUD Body Mass Index 34.64 03/11/2023 10:20 AM INVESTIGATOR FRAUD Plan of Treatment Not on file Insurance [facility] [place] [id number] Care Teams Potato Bucker Relationship Specialty Start Date End Date Georgia Black PA PCP - General Physician Wallpaper Hanger Helper 06/27/21
== END 2024-07-26 11:51 | disposition home or self-care (01) ==
PROVIDERS: PCP Physician Assistant; Visit Provider Physician Assistant
DX: M79.89 Other specified soft tissue disorders (principal)
CPT/HCPCS: 73630